=== PATIENT | male | born 1950 | race African-American/Black ===

== ENCOUNTER 2019-10-06 00:06 | Day surgery (SDC) | payer MEDICARE, OTHER, SELFPAY ==
[2019-10-03 12:31] VITALS: BMI 21.4
[2019-10-06] MEDS: LACTATED RINGERS 1,000 ML 150 ML IV CONT (10:56)
[2019-10-06 10:58] VITALS: BP 129/73; PULSE 66; RESP 16; TEMP 36.4; O2SAT 100
--- NOTE | 2019-10-06 11:34 | WPDANESEPPF ---
Anes - Initial Pre Proc Eval Procedure: Operation Date: 10/06/19 12:00 Proposed Procedures p Colonoscopy - Ignacio Brito MD Date/Time: 10/06/19 11:34 Surgeon: Ignacio Brito MD Pre Op Diagnosis: RECTAL BLEED Patient Data Age: 69 Gender: M Height: 5 ft 10 in Weight: 65.7 kg Last Vital Signs Temp 36.4 C L 10/06/19 10:58 Pulse 66 10/06/19 10:58 Resp 16 10/06/19 10:58 BP 129/73 10/06/19 10:58 Pulse Ox 100 10/06/19 10:58 Allergies Allergy/AdvReac Type Severity Reaction Status Date / Time Fish Containing Products Allergy Severe Anaphylaxis Verified 10/06/19 10:40 Home Medications Medication Instructions Recorded Confirmed Type cholecalciferol (vitamin D3) 50 mcg PO DAILY 10/03/19 10/03/19 History [Vitamin D3] Patient hx anesthesia problems: none Family hx anesthesia problems: none PMFSH Past Medical History Medical History Dementia H/O pneumothorax Marijuana abuse Smoker Surgical History Surgical History (Updated 10/06/19 @ 11:36 by Peewee Pinto MD) H/O chest tube placement Anes - Eval Final PreProcedure Day of Procedure 10/06/19 11:34 Patient weight: normal Heart: regular rate and rhythm Lungs: clear to auscultation Airway: Mallampati scale class II Neurological: alert and oriented Last oral intake: >/= 8 hours ASA classification: III Emergent: no Anesthetic plan: proceed Anesthesia type and monitoring: general and standard monitoring Informed Consent: The patient's anesthetic plan and its attendant risks and benefits were discussed with the patient/family/POA. Questions were solicited and answers provided to the satisfaction of the patient/family/POA.
--- NOTE | 2019-10-06 12:15 | P.HP_ITS ---
History of Present Illness History of Present Illness Consent: Risks, benefits, and alternatives have been discussed and questions answered. Patient agrees to proceed with procedure. Chief complaint: RECTAL BLEED Narrative: Carlos Zamora Jr. is a 69 year old AA male for colonoscopy for evaluation of intermittent rectal bleeding. Describes this as bright red blood per rectum. He has no pain. No fever chills or sweats. He did have a colonoscopy over 2 years ago revealing internal hemorrhoids and a small adenomatous polyp removed. There is also family history of colon cancer in his mother. Patient also has diverticulosis. [facility] Past Medical History Medical History Dementia H/O pneumothorax Marijuana abuse Smoker Surgical History Surgical History H/O chest tube placement Meds Home Medications and Allergies Home Medications Medication Instructions Recorded Confirmed Type cholecalciferol (vitamin D3) 50 mcg PO DAILY 10/03/19 10/03/19 History [Vitamin D3] Allergies Allergy/AdvReac Type Severity Reaction Status Date / Time Fish Containing Products Allergy Severe Anaphylaxis Verified 10/06/19 10:40 Vital Signs Vital Signs - 24 hr 10/06/19 10:58 Temperature 36.4 C L Pulse Rate 66 Respiratory Rate 16 Blood Pressure 129/73 Pulse Oximetry 100 Exam Const: Orientation/consciousness: patient oriented x3 Resp: Auscultation: clear to auscultation bilaterally Cardio: Rate: regular rate Rhythm: regular rhythm Heart sounds: no murmurs GI: GI Palp: Yes Soft to palpation, No Tenderness to palpation present (GI), Yes No hepatosplenomegaly present and No Palpable mass present Auscultation: normal bowel sounds Neuro: General: patient oriented x3 and no focal motor deficits Extrem: General: no pedal edema Assessment and Plan Additional Plan colonoscopy for evaluation of rectal bleeding
[2019-10-06] MEDS: SIMETHICONE ORAL SUSPENSION 20 MG/0.3 ML 30 ML BOTTLE 0.6 ML IRRIGATION (12:49)
[2019-10-06 13:06] VITALS: BP 116/54; PULSE 63; RESP 19; O2SAT 99
[2019-10-06 13:10] VITALS: BP 128/72; PULSE 57; RESP 17; O2SAT 100
[2019-10-06 13:20] VITALS: BP 140/67; PULSE 56; RESP 20; O2SAT 100
== END 2019-10-06 13:51 | disposition home or self-care (01) ==
PROVIDERS: PCP Internal Medicine; Visit Provider Internal Medicine Gastroenterology
PROC: 0DJD8ZZ Inspection of Lower Intestinal Tract, Via Natural or Artificial Opening Endoscopic (ICD-10-PCS; CPT 45378; principal; 2019-10-06 12:00)
DX: K62.5 Hemorrhage of anus and rectum (principal); K64.1 Second degree hemorrhoids; K64.0 First degree hemorrhoids; K57.30 Diverticulosis of large intestine without perforation or abscess without bleeding; Z80.0 Family history of malignant neoplasm of digestive organs; F03.90 Unspecified dementia, unspecified severity, without behavioral disturbance, psychotic disturbance, mood disturbance, and anxiety; F12.10 Cannabis abuse, uncomplicated
CPT/HCPCS: 45378; J2704; J7120